=== PATIENT | male | born 1980 | race Caucasian/White ===

== ENCOUNTER 2016-12-19 08:45 | Emergency (ER) | payer OTHER ==
[~2016-12-19] VITALS: Ht 180.3 cm; Wt 81.9 kg
[~2016-12-19 08:45] MED LIST: HYDR-3307 PO
[2016-12-19] MEDS ORDERED: SODIUM CHLORIDE 0.9% 1,000 ML IV ONE (09:57)
[2016-12-19] MEDS ORDERED: ASPIRIN 81 MG TABLET CHEW PO ONE (10:00)
[2016-12-19] MEDS ORDERED: ONDANSETRON 2MG/ML, 2ML IVPush ONE (10:00)
[2016-12-19] MEDS ORDERED: SODIUM CHLORIDE 0.9% 1,000ML IVBOLUS ONE (10:00)
[2016-12-19] MEDS ORDERED: ASPIRIN 81 MG TABLET CHEW ONE (10:13)
[2016-12-19] MEDS ORDERED: ONDANSETRON 2MG/ML, 2ML ONE (10:13)
[2016-12-19 10:37] LABS: ASPARTATE AMINO TRANSFERASE 17 U/L (15-37); BLOOD UREA NITROGEN 10 mg/dL (7-18)
[2016-12-19 10:43] LABS: IS PT STATUS REG ER OR PRE ER? YES
[2016-12-19 11:02] VITALS: BP 133/85
== END 2016-12-19 11:38 | disposition home or self-care (01) ==
LOC: ED 10:52
DX: R07.89 Other chest pain (principal); K29.00 Acute gastritis without bleeding; M54.9 Dorsalgia, unspecified; G89.29 Other chronic pain
CPT/HCPCS: 36415; 71010; 80053; 83690; 84484; 85025; 93005; 96360; 99285; J7030

== ENCOUNTER 2017-07-27 00:19 | Emergency (ER) | payer OTHER ==
[~2017-07-27] VITALS: Ht 180.3 cm; Wt 80.5 kg
[2017-07-27] MEDS ORDERED: LORazepam 1MG TABLET ONE (00:45)
[2017-07-27 00:56] LABS: HEMATOCRIT 46.3 % (39.2-51.8); HEMOGLOBIN 15.8 g/dL (13.7-18.0); WHITE BLOOD COUNT 9.9 x10^3/uL (3.4-10)
[2017-07-27] MEDS ORDERED: LORazepam 1MG TABLET PO ONE (01:00)
[2017-07-27 01:08] LABS: BLOOD UREA NITROGEN 14 mg/dL (7-18)
[2017-07-27 01:34] VITALS: BP 132/85
== END 2017-07-27 02:11 | disposition home or self-care (01) ==
LOC: ED 01:12
DX: I10 Essential (primary) hypertension (principal)
CPT/HCPCS: 36415; 71020; 80048; 82040; 85025; 93005; 99285

== ENCOUNTER 2017-09-06 05:27 | Emergency (ER) | payer OTHER ==
[~2017-09-06] VITALS: Ht 180.3 cm; Wt 77.9 kg
[2017-09-06] MEDS ORDERED: FAMOTIDINE 20 MG/2 ML ONE (06:19)
[2017-09-06] MEDS ORDERED: ONDANSETRON 2MG/ML, 2ML ONE (06:19)
[2017-09-06] MEDS ORDERED: ONDANSETRON 2MG/ML, 2ML IVPush ONE (06:30)
[2017-09-06] MEDS ORDERED: SODIUM CHLORIDE 0.9% 1,000ML IVBOLUS ONE (06:30)
[2017-09-06] MEDS ORDERED: FAMOTIDINE 20 MG/2 ML IVP ONE (06:30)
[2017-09-06] MEDS ORDERED: PROMETHAZINE 25 MG/ML, 1ML ONE (07:40)
[2017-09-06] MEDS ORDERED: PROMETHAZINE 25 MG/ML, 1ML IM ONE (08:00)
[2017-09-06 08:05] VITALS: BP 136/82
== END 2017-09-06 08:06 | disposition home or self-care (01) ==
LOC: ED 06:01
DX: A08.11 Acute gastroenteropathy due to Norwalk agent (principal); G89.29 Other chronic pain
CPT/HCPCS: 96361; 96374; 96375; 99285; J2405; J7030; S0028

== ENCOUNTER 2018-02-28 13:27 | Emergency (ER) | payer OTHER ==
[~2018-02-28] VITALS: Ht 182.9 cm; Wt 79.6 kg
[2018-02-28 13:30] VITALS: BP 159/90
== END 2018-02-28 14:27 | disposition home or self-care (01) ==
LOC: ED 14:07
DX: F41.1 Generalized anxiety disorder (principal); G47.30 Sleep apnea, unspecified; R03.0 Elevated blood-pressure reading, without diagnosis of hypertension
CPT/HCPCS: 99284

== ENCOUNTER 2019-02-25 06:40 | Emergency (ER) | payer OTHER ==
[~2019-02-25] VITALS: Ht 180.3 cm; Wt 77.4 kg
[2019-02-25] MEDS ORDERED: SODIUM CHLORIDE FLUSH 10ML SYR IVF ONE (07:00)
[2019-02-25] MEDS ORDERED: ONDANSETRON 2MG/ML, 2ML IVPush ONE (07:00)
[2019-02-25] MEDS ORDERED: HYDR-3652 PO (07:07)
--- NOTE | 2019-02-25 07:07 | NUR ---
FIRST CONTACT WITH PT. PT REPORTS ABD PAIN THAT STARTED AROUND 0300 THIS MORNING. HE STATES HIS PAIN IS A 10/10 AND IS MOANING AND RESTLESS. PER PT REPORT, HAS ROUNDED.
[2019-02-25] MEDS ORDERED: ONDANSETRON 2MG/ML, 2ML ONE (07:16)
[2019-02-25] MEDS ORDERED: MORPHINE SULFATE 4 MG/ML, 1ML ONE ×2 (07:17→08:25)
[2019-02-25 07:23] LABS: BASOPHILS # (AUTO) 0.03 x10^3/uL (0-0.1); BASOPHILS % (AUTO) 1 % (0-1); EOSINOPHILS # (AUTO) 0.04 x10^3/uL (0-0.4); EOSINOPHILS % (AUTO) 1 % (1-7); LYMPHOCYTES # (AUTO) 2.37 x10^3/uL (1-3.4); LYMPHOCYTES % (AUTO) 31 % (22-44); MD NO; MEAN CORPUSCULAR HGB CONC 33.8 g/dL (33.2-36.2); MEAN CORPUSCULAR VOLUME 94.9 fL (81-97); MEAN PLATELET VOLUME 10.7 fL (7.4-10.4); MONOCYTES # (AUTO) 0.54 x10^3/uL (0.2-0.8); MONOCYTES % (AUTO) 7 % (2-9); NEUTROPHILS # (AUTO) 4.75 x10^3/uL (1.8-6.8); NEUTROPHILS % (AUTO) 61 % (42-75); PLATELET COUNT 175 x10^3/uL (130-400); RED BLOOD COUNT 4.97 x10^6/uL (4.38-5.82); RED CELL DISTRIBUTION WIDTH 13.4 % (9.4-14.8)
[2019-02-25] MEDS: MORPHINE SULFATE 4 MG/ML, 1ML IVPush PRN ×2 (07:25→08:28)
--- NOTE | 2019-02-25 07:28 | NUR ---
PT MEDICATED WITH ZOFRAN AND MORPHINE. PT ON SLUNK SKINNER AND Q 15 MIN VS.
[2019-02-25 07:33] LABS: ALANINE AMINOTRANSFERASE 30 U/L (12-78); ALBUMIN 4.1 g/dL (3.4-5.0); ANION GAP 9 mmol/L (5-15); CALCIUM 8.7 mg/dL (8.5-10.1); CHLORIDE 111 mmol/L (98-107); CREATININE 1.04 mg/dL (0.7-1.3)
[2019-02-25 07:36] LABS: ALKALINE PHOSPHATASE 78 U/L (45-117); BILIRUBIN,TOTAL 0.6 mg/dL (0.2-1.0); TOTAL PROTEIN 7.4 g/dL (6.4-8.2)
--- NOTE | 2019-02-25 07:39 | NUR ---
I REPORTED TO AMADO THAT THE PT IS ALSO C/O TESTICULAR PAIN AND REPORTS THAT HE HAS AN UMBILICAL HERNIA. PAIN MEDICATED REDUCED PAIN FROM 05/20 TO 10/18.
[2019-02-25 07:48] LABS: MICROSCOPIC INDICATED
[2019-02-25 08:06] LABS: CULTURE INDICATED? NO
--- NOTE | 2019-02-25 08:31 | NUR ---
PT MEDICATED FOR PAIN. VSS.
[2019-02-25 08:58] VITALS: BP 138/88
[2019-02-25] MEDS ORDERED: KETOROLAC 30 MG/1 ML IVPush ONE (09:00)
--- NOTE | 2019-02-25 09:24 | NUR ---
Patient/Caregiver given discharge instructions and they have confirmed that they understand the instructions. Patient ambulatory with steady gait.
== END 2019-02-25 09:24 | disposition home or self-care (01) ==
LOC: ED 07:23
DX: N13.2 Hydronephrosis with renal and ureteral calculous obstruction (principal); G89.29 Other chronic pain
CPT/HCPCS: 36415; 74176; 80053; 81001; 83690; 85025; 93005; 96374; 96375; 96376; 99284; J2270; J2405